=== PATIENT | male | born 1965 | race Hispanic/Latino ===

== ENCOUNTER 2019-10-31 14:04 | Emergency (ER) | payer MEDICARE ==
[2019-10-31] MEDS ORDERED: SODIUM CHLORIDE 0.9% 1000 ML 1,000 ML IV ONE ×2 (14:49→14:50)
[2019-10-31] MEDS ORDERED: PIPERACILLIN/TAZOBACTAM 3.375 3.375 GM/50 ML BAG IV ONE (14:50)
--- NOTE | 2019-10-31 14:55 | Emergency Department Report ---
ED Chest Pain HPI - General Stated Complaint: CHEST PAIN Time Seen by Provider: 10/31/19 14:48 - History of Present Illness Initial Comments: Patient is 64 years old male with history of HIV, noncompliant with his medication. Patient stated that last time he took his HIV medication was one month ago because as he stated that they refused to refill his medication. Patient presented to the ER complaining of right sided chest pain for the last 2-3 days. Patient describes his pain as sharp and increased with respiration with no radiation. Patient stated that he has been having chills and fever for the last 2-3 days also. Patient also reports cough, nonproductive. Patient denied any left sided chest pain. No shortness of breath. MD Complaint: chest pain -: days(s) (2) Pain Location: right chest Severity: moderate Severity scale (0 -10): 6 Quality: sharp Worsens With: inspiration Other Symptoms: cough, fever. denies: syncope - Related Data Allergies Allergy/AdvReac Type Severity Reaction Status Date / Time No Known Allergies Allergy Unverified 10/31/19 14:51 Heart Score - HEART Score History: Slightly suspicious EKG: Non-specific Age: 45-65 Risk factors: 1-2 risk factors Troponin: < normal limit HEART Score: 3 ED Review of Systems ROS: Stated complaint: CHEST PAIN Other details as noted in HPI Comment: All other systems reviewed and negative Constitutional: chills, fever Respiratory: cough. denies: orthopnea, shortness of breath, SOB with exertion, SOB at rest, wheezing Cardiovascular: chest pain. denies: palpitations Gastrointestinal: nausea, vomiting. denies: abdominal pain, diarrhea, constipation, hematemesis, melena, hematochezia Musculoskeletal: denies: back pain Skin: denies: rash Neurological: denies: headache, weakness, numbness, paresthesias, confusion, abnormal gait ED Physical Exam - General General appearance: alert, in no apparent distress - Head Head exam: Present: atraumatic, normocephalic, normal inspection - Eye Eye exam: Present: normal appearance - ENT ENT exam: Present: mucous membranes dry - Neck Neck exam: Present: normal inspection, full ROM. Absent: tenderness, meningismus, lymphadenopathy, thyromegaly - Respiratory Respiratory exam: Present: normal lung sounds bilaterally - Cardiovascular Cardiovascular Exam: Present: tachycardia - GI/Abdominal GI/Abdominal exam: Present: soft, normal bowel sounds. Absent: distended, tenderness, guarding, rebound, rigid, organomegaly, mass, bruit, pulsatile mass, hernia - Extremities Exam Extremities exam: Present: normal inspection, full ROM, normal capillary refill - Back Exam Back exam: Present: normal inspection, full ROM. Absent: CVA tenderness (R), CVA tenderness (L) - Neurological Exam Neurological exam: Present: alert, oriented X3, CN II-XII intact - Psychiatric Psychiatric exam: Present: normal mood - Skin Skin exam: Present: warm, dry, intact ED Course Vital Signs 10/31/19 10/31/19 10/31/19 14:39 15:00 15:30 Temperature 98.5 F Pulse Rate 106 H 94 H 99 H Respiratory 16 14 16 Rate Blood Pressure 131/87 123/84 141/89 O2 Sat by Pulse 98 99 100 Oximetry 10/31/19 10/31/19 10/31/19 16:01 16:31 17:00 Temperature Pulse Rate 106 H 113 H 114 H Respiratory 19 23 16 Rate Blood Pressure 127/91 140/81 139/82 O2 Sat by Pulse 100 100 100 Oximetry 10/31/19 10/31/19 10/31/19 17:30 18:00 18:30 Temperature Pulse Rate 113 H 98 H 93 H Respiratory 15 10 L 14 Rate Blood Pressure 124/77 124/73 117/70 O2 Sat by Pulse 100 99 100 Oximetry 10/31/19 10/31/19 10/31/19 19:00 19:41 20:00 Temperature Pulse Rate 98 H 108 H 104 H Respiratory 20 21 15 Rate Blood Pressure 113/68 109/84 124/83 O2 Sat by Pulse 99 100 100 Oximetry 10/31/19 10/31/19 10/31/19 20:30 21:00 21:30 Temperature Pulse Rate 109 H 99 H 104 H Respiratory 19 17 17 Rate Blood Pressure 136/80 122/81 122/88 O2 Sat by Pulse 100 100 100 Oximetry ED Medical Decision Making - Lab Data Result diagrams: 10/31/19 15:13 10/31/19 15:13 - EKG Data -: EKG Interpreted by Md EKG shows normal: sinus rhythm Rate: normal - EKG Data Interpretation: no acute changes - Radiology Data Radiology results: report reviewed - Medical Decision Making Patient is 64 years old male with history of HIV, noncompliant with his medication. Patient stated that last time he took his HIV medication was one month ago because as he stated that they refused to refill his medication. Patient presented to the ER complaining of right sided chest pain for the last 2-3 days. Patient describes his pain as sharp and increased with respiration with no radiation. Patient stated that he has been having chills and fever for the last 2-3 days also. Patient also reports cough, nonproductive. Patient denied any left sided chest pain. No shortness of breath. Patient labs reviewed that is unremarkable except for slightly elevated d-dimer. Patient had a CTA chest which is negative for pulmonary embolism or any other pathology. Patient stated that he is feeling much better. Patient advised to follow along as his primary care physician in the next 2-3 days and to return to the ER if symptoms are not improved Critical care attestation.: If time is entered above; I have spent that time in minutes in the direct care of this critically ill patient, excluding procedure time. ED Disposition Clinical Impression: Chest pain, Acute bronchitis Disposition: TO HOME OR SELFCARE Is pt being admited?: No Condition: Stable Instructions: Chest Pain (ED), Acute Bronchitis (ED) Referrals: PRIMARY CARE, [Primary Care Provider] - 3-5 Days
[2019-10-31] MEDS ORDERED: ONDANSETRON 4 MG/2 ML INJ IV ONE ×2 (14:56→20:59)
--- NOTE | 2019-10-31 15:17 | XRay Report ---
CHEST 1 VIEW INDICATION / CLINICAL INFORMATION: sepsis. COMPARISON: None available. FINDINGS: SUPPORT DEVICES: None. HEART / MEDIASTINUM: No significant abnormality. LUNGS / PLEURA: No significant pulmonary or pleural abnormality. No pneumothorax. ADDITIONAL FINDINGS: No significant additional findings. IMPRESSION: 1. No acute findings. Signer Name: Kerry Barba MD Signed: 10/31/2019 3:12 PM Workstation Name: [id number]
[2019-10-31 15:23] LABS: Basophils % (Auto) 0.7 % (0.0-1.8); Eosinophils # (Auto) 0.2 K/mm3 (0.0-0.4); Eosinophils % (Auto) 2.3 % (0.0-4.3); Hematocrit 43.7 % (35.5-45.6); Hemoglobin 14.5 gm/dl (11.8-15.2); Lymphocytes # (Auto) 0.7 K/mm3 (1.2-5.4); Lymphocytes % (Auto) 9.6 % (13.4-35.0); Mean Corpuscular HGB Conc 33 % (32-34); Mean Corpuscular Volume 95 fl (84-94); Monocytes # (Auto) 0.3 K/mm3 (0.0-0.8); Monocytes % (Auto) 3.5 % (0.0-7.3); Platelet Count 182 K/mm3 (140-440); Red Cell Distribution Width 13.3 % (13.2-15.2)
[2019-10-31 15:40] LABS: Alanine Aminotransferase 9 units/L (7-56); Albumin 4.3 g/dL (3.9-5); BUN/Creatinine Ratio 23; Blood Urea Nitrogen 23 mg/dL (9-20); Calcium 9.4 mg/dL (8.4-10.2); Hemolysis Index 3
[2019-10-31 17:44] LABS: INR 1.08 (0.87-1.13)
[2019-10-31 17:46] LABS: Partial Thromboplastin Time 24.6 Sec. (24.2-36.6)
[2019-10-31 18:15] LABS: Bacteria,Urine 1+ /HPF (Negative); Bilirubin,Urine NEG (Negative); Blood,Urine MOD (Negative); Color,Urine Yellow (Yellow); Hyaline Casts,Urine 3 /LPF; Mucus,Urine FEW /HPF; Urobilinogen,Urine < 2.0 mg/dL (<2.0)
--- NOTE | 2019-10-31 20:47 | Cat Scan Report ---
CTA CHEST WITH IV CONTRAST INDICATION / CLINICAL INFORMATION: MAIN: Right sided chest pain. 100 ML OMNIPAQUE 350. TECHNIQUE: Axial CT images were obtained through the chest after injection of 100 mL Omnipaque 350 IV contrast. 3 plane MIP and/or 3D reconstructions were produced. All CT scans at this location are performed usin g CT dose reduction for ALARA by means of automated exposure control. COMPARISON: Chest radiograph same day and CT chest 02/16/2014 FINDINGS: PULMONARY ARTERIES: No pulmonary emboli. THORACIC AORTA: No significant abnormality. HEART: No significant abnormality. CORONARY ARTERIES: No significant calcification. PLEURA: Trace right pleural fluid. No pneumothorax. LYMPH NODES: No significant adenopathy. LUNGS: Mild biapical scarring. No focal pulmonary consolidation. ADDITIONAL FINDINGS: None. UPPER ABDOMEN: No acute findings. SKELETAL STRUCTURES: No significant osseous abnormality. IMPRESSION: 1. No CT evidence for pulmonary embolism. 2. No acute findings. Signer Name: Kerry Barba MD Signed: 10/31/2019 8:42 PM Workstation Name: [id number]
[2019-10-31] MEDS ORDERED: MORPHINE 4 MG/1 ML INJ IV ONE (20:59)
[2019-10-31 21:41] VITALS: BP 122/88
== END 2019-10-31 22:20 | disposition home or self-care (01) ==
LOC: ED 14:04 → EDBD 14:04 → ED 22:20
DX: J20.9 Acute bronchitis, unspecified (principal); R11.2 Nausea with vomiting, unspecified
CPT/HCPCS: 36415; 71045; 71275; 80053; 81001; 82140; 84484; 85025; 85379; 85610; 85730; 87040; 93005; 93010; 96361; 96365; 96375; 96376; 99285; J2270; J2405; J2543; J7030; Q9967